=== PATIENT | female | born 1980 | race African-American/Black ===

== ENCOUNTER 2022-10-21 00:39 | Emergency (ER) | payer SELFPAY ==
[2022-10-21 01:30] LABS: #Basophils 0.1 10x3/uL (0.0-0.2); #Eosinphils 0.7 10x3/uL (0.0-0.5); #Monocytes 0.7 10x3/uL (0.0-1.1); #Neutrophils 2.4 10x3/uL (1.5-8.4); %Basophils 1.4 % (0.0-2.0); %Eosinophils 11.5 % (0.0-6.0); %Lymphocytes 35.9 % (18.0-47.0); %Monocytes 11.3 % (0.0-10.0); %Neutrophils 39.7 % (40.0-75.0); Hematocrit 37.8 % (34.9-44.5); Mean Corpuscular HGB CONC 31.7 g/dL (32.0-36.0); Mean Corpuscular Hemoglobin 23.4 pg (27.0-33.0); Mean Corpuscular Volume 73.7 fl (81.6-98.3); Platelet Count 161 10x3/uL (150-450); RBC Distribution Width 17.7 % (11.5-14.5); Red Blood Cell (RBC) Count 5.13 10x6/uL (3.90-5.03); White Blood Cell (WBC) Count 5.9 10x3/uL (3.5-10.5)
[2022-10-21 01:32] LABS: BHCG - Serum Negative (NEGATIVE); Pregs Control Background? CLEAR/WHITE (CLR/WHITE); Pregs Control Bar Appear? YES (CONTROL BAR)
[2022-10-21 01:36] LABS: PTT 28.2 sec (22.0-33.0); Prothrombin Time 10.8 sec (9.5-12.1)
[2022-10-21 01:38] LABS: ALT (SGPT) 20 U/L (8-55); AST (SGOT) 22 U/L (5-34); Albumin 3.9 g/dL (3.5-5.0); Alkaline Phosphatase 86 U/L (40-110); Anion Gap 14 mmol/L (10-20); BUN (Urea Nitrogen) 19 mg/dL (7.0-18.7); Bilirubin, Total 0.4 mg/dL (0.2-1.2); Calc. Creatinine Clearance 0 mL/min (70-130); Calcium 9.5 mg/dL (7.8-10.44); Carbon Dioxide 25 mmol/L (22-29); Chloride 105 mmol/L (98-107); Estimated GFR 55; Globulin 3.9 g/dL (2.4-3.5); Glucose 119 mg/dL (70-105); Potassium 3.7 mmol/L (3.5-5.1); Protein, Total 7.8 g/dL (6.0-8.3); Sodium 140 mmol/L (136-145)
[2022-10-21 01:44] LABS: Troponin I Less than 0.010 ng/mL (< 0.028)
[2022-10-21] MEDS ORDERED: Amiodarone 150 MG/3 ML VIAL ONE (01:51)
[2022-10-21] MEDS ORDERED: Amiodarone In Dextrose 200 ML ONE (01:52)
[2022-10-21 02:29] LABS: Elliptocytes SLIGHT = 2-5 cells (100X) (0-1/hpf); Microcytosis SLIGHT = 6-15 cells (100X) (0-5/hpf); Platelet Adequacy Comment Appears Adequate
[2022-10-21] MEDS ORDERED: Amiodarone 200 MG TAB PO SCH (02:30)
== END 2022-10-21 03:24 | disposition home or self-care (01) ==
LOC: CSHERS 00:39
DX: R00.2 Palpitations (principal); I11.0 Hypertensive heart disease with heart failure; I50.9 Heart failure, unspecified
CPT/HCPCS: 71045; 80053; 83735; 83880; 84484; 84703; 85025; 85610; 85730; 93005; 96374; J0282; J0283